=== PATIENT | male | born 2000 | race Hispanic/Latino ===

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

== ENCOUNTER 2020-10-20 17:23 | Emergency (ER) | payer OTHER | END 2020-10-20 20:02 | disposition left against medical advice (07) | LOC: EDH 17:23 | DX: F41.9 Anxiety disorder, unspecified (principal); Z72.0 Tobacco use | CPT/HCPCS: 93005 ==

== ENCOUNTER 2022-02-08 20:59 | Emergency (ER) | payer OTHER ==
[~2022-02-08] VITALS: Ht 175.3 cm; Wt 77.1 kg
[2022-02-08] MEDS ORDERED: IBUPROFEN 800 MG TAB PO ONE (21:30)
[2022-02-08] MEDS ORDERED: IBUPROFEN 800 MG TAB ONE (21:31)
[2022-02-08] MEDS ORDERED: IBUP-2071 PO (22:16)
[2022-02-08 22:20] VITALS: BP 132/75
== END 2022-02-08 22:22 | disposition home or self-care (01) ==
LOC: EDH 20:59
DX: S63.502A Unspecified sprain of left wrist, initial encounter (principal); Z79.1 Long term (current) use of non-steroidal anti-inflammatories (NSAID); X58.XXXA Exposure to other specified factors, initial encounter; Y93.89 Activity, other specified; Y92.89 Other specified places as the place of occurrence of the external cause; Y99.8 Other external cause status
CPT/HCPCS: 29125; 73100; 73130

== ENCOUNTER 2022-06-23 03:46 | Emergency (ER) | payer OTHER ==
[~2022-06-23] VITALS: Ht 170.2 cm; Wt 68.0 kg
[~2022-06-23 03:46] MED LIST: IBUP-2071 PO
[2022-06-23 05:37] LABS: BASOPHILS % (AUTO) 0.4 % (0.0-5.0); EOSINOPHILS % (AUTO) 1.1 % (0.0-8.0); HEMATOCRIT 44.3 % (42-54); MEAN CORPUSCULAR HEMOGLOBIN 32.2 pg (27.0-33.0); MEAN CORPUSCULAR VOLUME 91.9 fL (79-99); MONOCYTES % (AUTO) 8.7 % (3.0-13.0); NEUTROPHILS % (AUTO) 61.4 % (40.0-77.0); PLATELET COUNT (AUTO) 227 K/uL (130-400); RED BLOOD CELL COUNT(AUTO) 4.82 MIL/uL (4.50-6.20); RED CELL DISTRIBUTION WIDTH 12.6 % (11.0-15.5); WHITE BLOOD COUNT (AUTO) 11.2 K/uL (4.8-10.8)
[2022-06-23 05:50] LABS: CREATININE 0.9 mg/dL (0.5-1.5)
[2022-06-23 05:55] LABS: ALBUMIN 4.3 g/dL (3.5-5.0); TOTAL PROTEIN, SERUM 7.8 g/dL (6.0-8.3)
[2022-06-23 06:05] LABS: APPEARANCE,URINE CLEAR (CLEAR); BILIRUBIN,URINE NEGATIVE (NEGATIVE); COLOR,URINE LIGHT-YELLOW (YELLOW); GLUCOSE, URINE (UA) NEGATIVE (NEGATIVE); KETONES,URINE NEGATIVE (NEGATIVE); LEUKOCYTE ESTERASE ,URINE NEGATIVE Leu/uL (NEGATIVE); NITRATE,URINE NEGATIVE (NEGATIVE); OCCULT BLOOD,URINE NEGATIVE (NEGATIVE); PROTEIN,URINE 20 mg/dL (NEGATIVE); UROBILINOGEN,URINE 0.2 mg/dL (0.2-1.0)
[2022-06-23 06:59] VITALS: BP 134/81
== END 2022-06-23 07:17 | disposition home or self-care (01) ==
LOC: EDH 03:46
DX: B34.9 Viral infection, unspecified (principal); Z20.822 Contact with and (suspected) exposure to COVID-19; Z79.1 Long term (current) use of non-steroidal anti-inflammatories (NSAID)
CPT/HCPCS: 99284; 71045; 87635; 80053; 85025; 87880; 81003; 36415; C9803